=== PATIENT | female | born 1985 | race American Indian/Alaskan Native ===

== ENCOUNTER 2018-12-08 23:27 | Emergency (ER) | payer MEDICAID, OTHER ==
[2018-12-08] MEDS ORDERED: Sodium Chloride 0.9% 10 ML Syringe FLUSH PRN (23:50)
[2018-12-09] MEDS ORDERED: Iopamidol 612 MG/ML 75 ML Bottle IVPUSH ONE (00:06)
[2018-12-09 01:04] LABS: ANION GAP 13.2; CHLORIDE,CL 103 mmol/L (101-111); SODIUM,NA 138 mmol/L (135-145)
--- NOTE | 2018-12-09 01:40 | EDM.PDOC ---
ED HPI GENERAL MEDICAL PROBLEM - General Chief Complaint: Abdominal Pain Stated Complaint: EYES ARE YELLOW, SHARP PAIN RIGHT SIDE [id number] Time Seen by Provider: 12/09/18 00:15 Source of Information: Reports: Patient, RN, RN Notes Reviewed History Limitations: Reports: No Limitations - History of Present Illness INITIAL COMMENTS - FREE TEXT/NARRATIVE: Pt to Er with c/o RUQ pain and "yellow eyes". Patient states she has not been feeling well for about a week to 10 days. She states her sister told her about 5 days ago that her eyes were yellow. Patient states she drinks alcohol minimally, denies any other illnesses. She states she has had chills at times, nausea, vomiting. Patient denies hepatitis. Onset: Gradual Duration: Constant, Getting Worse Location: Reports: Abdomen Quality: Reports: Stabbing Severity: Moderate Improves with: Reports: None Worsens with: Reports: None Associated Symptoms: Reports: Other (jaundice) Right Upper Abdominal Pain Score (Numeric/FACES): 2 - Related Data Allergies Allergy/AdvReac Type Severity Reaction Status Date / Time No Known Allergies Allergy Verified 04/03/15 06:30 Home Meds: Home Meds . 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: Psychiatric History: Reports: Addiction Social & Family History - Family History Family Medical History: Noncontributory - Tobacco Use Smoking Status *Q: Current Every Day Smoker Years of Tobacco use: 14 Packs/Tins Daily: 1 Second Hand Smoke Exposure: Yes - Caffeine Use Caffeine Use: Reports: Coffee, Energy Drinks, Soda - Recreational Drug Use Recreational Drug Use: Yes Drug Use in Last 12 Months: Yes Recreational Drug Type: Reports: Amphetamines (Speed), Marijuana/Hashish, Methamphetamine, Oxycodone Recreational Drug Use Frequency: Binges Recreational Drug Last Use: pills, marijuana, meth ED ROS GENERAL - Review of Systems Review Of Systems: ROS reveals no pertinent complaints other than HPI. ED EXAM, GI/ABD - Physical Exam Exam: See Below Exam Limited By: No Limitations General Appearance: Alert, WD/WN, No Apparent Distress, Anxious Eyes: Bilateral: Normal Appearance (scleral icterus), EOMI Ears: Normal External Exam, Hearing Grossly Normal Nose: Normal Inspection Throat/Mouth: Normal Inspection, Normal Voice, No Airway Compromise Head: Atraumatic, Normocephalic Neck: Normal Inspection, Supple, Non-Tender, Full Range of Motion Respiratory/Chest: No Respiratory Distress, Lungs Clear, Normal Breath Sounds, No Accessory Muscle Use, Chest Non-Tender Cardiovascular: Normal Peripheral Pulses, Regular Rate, Rhythm, No Edema, No Gallop, No JVD, No Murmur, No Rub GI/Abdominal Exam: Normal Bowel Sounds, Soft, Tender (RUQ) (Female) Exam: Deferred Rectal (Female) Exam: Deferred Back Exam: Normal Inspection, Full Range of Motion Extremities: Normal Inspection, Normal Range of Motion, Non-Tender, No Pedal Edema, Normal Capillary Refill Neurological: Alert, Oriented, CN II-XII Intact, Normal Cognition, Normal Gait, Normal Reflexes, No Motor/Sensory Deficits Psychiatric: Normal Affect, Normal Mood, Anxious Skin Exam: Warm, Dry, Intact, Jaundice Lymphatic: No Adenopathy Course - Vital Signs Last Recorded V/S: Last Vital Signs Temp 97.4 F 12/09/18 02:59 Pulse 74 12/09/18 00:05 Resp 18 12/09/18 00:05 BP 129/81 12/09/18 02:59 Pulse Ox 99 12/09/18 00:05 - Orders/Labs/Meds Orders: Active Orders 24 hr Category Date Time Status Peripheral IV Care [RC] . DIRECTED Care 12/08/18 23:50 Active CULTURE URINE [RM] Stat Lab 12/09/18 00:12 Received Sodium Chloride 0.9% [Normal Saline] 1,000 ml Med 12/09/18 03:02 Active IV .BOLUS Sodium Chloride 0.9% [Saline Flush] Med 12/08/18 23:50 Active 10 ml FLUSH ASDIRECTED PRN Peripheral IV Insertion Adult [OM.PC] Stat Oth 12/08/18 23:50 Ordered Medication Orders Sodium Chloride (Normal Saline) 1,000 mls @ 150 mls/hr IV .BOLUS ONE Stop: 12/09/18 09:41 Last Admin: 12/09/18 03:23 Dose: 150 mls/hr Sodium Chloride (Saline Flush) 10 ml FLUSH ASDIRECTED PRN PRN Reason: Keep Vein Open Last Admin: 12/09/18 00:13 Dose: 10 ml Labs: Laboratory Tests 0412/08/18 12/08/18 Range/Units 00:02 00:02 00:02 WBC 6.2 (5.0-10.0) 10^3/uL RBC 4.59 (4.2-5.4) 10^6/uL Hgb 13.7 D (12.0-16.0) g/dL Hct 39.7 (37.0-47.0) % MCV 86.5 (80-100) fL MCH 29.8 (27.0-34.0) pg MCHC 34.5 (33.0-35.0) g/dL Plt Count 351 D (150-450) 10^3/uL Neut % (Auto) 48.4 (42.2-75.2) % Lymph % (Auto) 37.6 (20.5-50.1) % [place] % (Auto) 10.9 H (2-8) % Eos % (Auto) 2.8 (1.0-3.0) % Baso % (Auto) 0.3 (0.0-1.0) % PT 10.6 (9.0-12.0) SEC INR 1.1 (0.9-1.2) Sodium 138 (135-145) mmol/L Potassium 3.2 L (3.6-5.0) mmol/L Chloride 103 (101-111) mmol/L Carbon Dioxide 25.0 (21.0-31.0) mmol/L Anion Gap 13.2 BUN 8 (7-18) mg/dL Creatinine 0.4 L (0.6-1.3) mg/dL Est Cr Clr Drug Dosing 201.87 mL/min Estimated GFR (MDRD) > 60 BUN/Creatinine Ratio 20.00 Glucose 99 (74-105) mg/dL Calcium 8.7 (8.4-10.2) mg/dl Total Bilirubin 10.0 H (0.2-1.0) mg/dL AST 931 H (10-42) IU/L ALT 1461 H (10-60) IU/L Alkaline Phosphatase 197 H (42-121) IU/L Total Protein 7.0 (6.7-8.2) g/dl Albumin 3.6 (3.2-5.5) g/dl Globulin 3.4 Albumin/Globulin Ratio 1.06 Amylase 57 (28-100) U/L Lipase 48 (22-51) U/L Urine Color (YELLOW) Urine Appearance (CLEAR) Urine pH (5.0-9.0) Ur Specific [place] (1.005-1.030) Urine Protein (NEGATIVE) Urine Glucose (UA) (NEGATIVE) Urine Ketones (NEGATIVE) Urine Occult Blood (NEGATIVE) Urine Nitrite (NEGATIVE) Urine Bilirubin (NEGATIVE) Urine Urobilinogen (0.2-1.0) mg/dL Ur Leukocyte Esterase (NEGATIVE) Urine RBC /HPF Urine WBC (0-5/HPF) /HPF Ur Epithelial Cells /HPF Urine Bacteria (0-FEW/HPF) /HPF Urine Mucus /LPF Urinalysis Comment Urine HCG, Qual Salicylates mg/dL Urine Opiates Screen (NEGATIVE) Ur Oxycodone Screen (NEGATIVE) Urine Methadone Screen (NEGATIVE) Acetaminophen ug/mL Ur Barbiturates Screen (NEGATIVE) U Tricyclic Antidepress (NEGATIVE) Ur Phencyclidine Scrn (NEGATIVE) Ur Amphetamine Screen (NEGATIVE) U Methamphetamines Scrn (NEGATIVE) Urine MDMA Screen (NEGATIVE) U Benzodiazepines Scrn (NEGATIVE) Urine Cocaine Screen (NEGATIVE) U Marijuana (THC) Screen (NEGATIVE) Ethyl Alcohol < 5 mg/dL 12/09/18 12/09/18 12/09/18 Range/Units 00:02 00:12 00:12 WBC (5.0-10.0) 10^3/uL RBC (4.2-5.4) 10^6/uL Hgb (12.0-16.0) g/dL Hct (37.0-47.0) % MCV (80-100) fL MCH (27.0-34.0) pg MCHC (33.0-35.0) g/dL Plt Count (150-450) 10^3/uL Neut % (Auto) (42.2-75.2) % Lymph % (Auto) (20.5-50.1) % [place] % (Auto) (2-8) % Eos % (Auto) (1.0-3.0) % Baso % (Auto) (0.0-1.0) % PT (9.0-12.0) SEC INR (0.9-1.2) Sodium (135-145) mmol/L Potassium (3.6-5.0) mmol/L Chloride (101-111) mmol/L Carbon Dioxide (21.0-31.0) mmol/L Anion Gap BUN (7-18) mg/dL Creatinine (0.6-1.3) mg/dL Est Cr Clr Drug Dosing mL/min Estimated GFR (MDRD) BUN/Creatinine Ratio Glucose (74-105) mg/dL Calcium (8.4-10.2) mg/dl Total Bilirubin (0.2-1.0) mg/dL AST (10-42) IU/L ALT (10-60) IU/L Alkaline Phosphatase (42-121) IU/L Total Protein (6.7-8.2) g/dl Albumin (3.2-5.5) g/dl Globulin Albumin/Globulin Ratio Amylase (28-100) U/L Lipase (22-51) U/L Urine Color Dark yellow (YELLOW) Urine Appearance Slightly cloudy (CLEAR) Urine pH 6.5 (5.0-9.0) Ur Specific [place] 1.025 (1.005-1.030) Urine Protein Trace H (NEGATIVE) Urine Glucose (UA) Negative (NEGATIVE) Urine Ketones 15 H (NEGATIVE) Urine Occult Blood Negative (NEGATIVE) Urine Nitrite Negative (NEGATIVE) Urine Bilirubin Large H (NEGATIVE) Urine Urobilinogen 2.0 H (0.2-1.0) mg/dL Ur Leukocyte Esterase Small H (NEGATIVE) Urine RBC 0-5 /HPF Urine WBC 50-75 H (0-5/HPF) /HPF Ur Epithelial Cells Many H /HPF Urine Bacteria Many H (0-FEW/HPF) /HPF Urine Mucus Moderate H /LPF Urinalysis Comment Urine HCG, Qual Negative Salicylates < 4.0 mg/dL Urine Opiates Screen (NEGATIVE) Ur Oxycodone Screen (NEGATIVE) Urine Methadone Screen (NEGATIVE) Acetaminophen < 10.0 ug/mL Ur Barbiturates Screen (NEGATIVE) U Tricyclic Antidepress (NEGATIVE) Ur Phencyclidine Scrn (NEGATIVE) Ur Amphetamine Screen (NEGATIVE) U Methamphetamines Scrn (NEGATIVE) Urine MDMA Screen (NEGATIVE) U Benzodiazepines Scrn (NEGATIVE) Urine Cocaine Screen (NEGATIVE) U Marijuana (THC) Screen (NEGATIVE) Ethyl Alcohol mg/dL 12/09/18 Range/Units 00:12 WBC (5.0-10.0) 10^3/uL RBC (4.2-5.4) 10^6/uL Hgb (12.0-16.0) g/dL Hct (37.0-47.0) % MCV (80-100) fL MCH (27.0-34.0) pg MCHC (33.0-35.0) g/dL Plt Count (150-450) 10^3/uL Neut % (Auto) (42.2-75.2) % Lymph % (Auto) (20.5-50.1) % [place] % (Auto) (2-8) % Eos % (Auto) (1.0-3.0) % Baso % (Auto) (0.0-1.0) % PT (9.0-12.0) SEC INR (0.9-1.2) Sodium (135-145) mmol/L Potassium (3.6-5.0) mmol/L Chloride (101-111) mmol/L Carbon Dioxide (21.0-31.0) mmol/L Anion Gap BUN (7-18) mg/dL Creatinine (0.6-1.3) mg/dL Est Cr Clr Drug Dosing mL/min Estimated GFR (MDRD) BUN/Creatinine Ratio Glucose (74-105) mg/dL Calcium (8.4-10.2) mg/dl Total Bilirubin (0.2-1.0) mg/dL AST (10-42) IU/L ALT (10-60) IU/L Alkaline Phosphatase (42-121) IU/L Total Protein (6.7-8.2) g/dl Albumin (3.2-5.5) g/dl Globulin Albumin/Globulin Ratio Amylase (28-100) U/L Lipase (22-51) U/L Urine Color (YELLOW) Urine Appearance (CLEAR) Urine pH (5.0-9.0) Ur Specific [place] (1.005-1.030) Urine Protein (NEGATIVE) Urine Glucose (UA) (NEGATIVE) Urine Ketones (NEGATIVE) Urine Occult Blood (NEGATIVE) Urine Nitrite (NEGATIVE) Urine Bilirubin (NEGATIVE) Urine Urobilinogen (0.2-1.0) mg/dL Ur Leukocyte Esterase (NEGATIVE) Urine RBC /HPF Urine WBC (0-5/HPF) /HPF Ur Epithelial Cells /HPF Urine Bacteria (0-FEW/HPF) /HPF Urine Mucus /LPF Urinalysis Comment Urine HCG, Qual Salicylates mg/dL Urine Opiates Screen Negative (NEGATIVE) Ur Oxycodone Screen Negative (NEGATIVE) Urine Methadone Screen Negative (NEGATIVE) Acetaminophen ug/mL Ur Barbiturates Screen Negative (NEGATIVE) U Tricyclic Antidepress Negative (NEGATIVE) Ur Phencyclidine Scrn Negative (NEGATIVE) Ur Amphetamine Screen Positive H (NEGATIVE) U Methamphetamines Scrn Positive H (NEGATIVE) Urine MDMA Screen Negative (NEGATIVE) U Benzodiazepines Scrn Negative (NEGATIVE) Urine Cocaine Screen Negative (NEGATIVE) U Marijuana (THC) Screen Positive H (NEGATIVE) Ethyl Alcohol mg/dL Meds: Medications Generic Name Dose Route Start Last Admin Trade Name Freq PRN Reason Stop Dose Admin Sodium Chloride 1,000 mls @ 150 mls/hr 12/09/18 03:02 12/09/18 03:23 Normal Saline IV 12/09/18 09:41 150 mls/hr .BOLUS ONE Administration Sodium Chloride 10 ml 12/08/18 23:50 12/09/18 00:13 Saline Flush FLUSH 10 ml ASDIRECTED PRN Administration Keep Vein Open Discontinued Medications Generic Name Dose Route Start Last Admin Trade Name Freq PRN Reason Stop Dose Admin Iopamidol 75 ml 12/09/18 00:06 12/09/18 01:59 Isovue-300 (61%) IVPUSH 12/09/18 00:07 75 ml ONETIME ONE Administration - Radiology Interpretation Free Text/Narrative:: Abdominal CT: FINDINGS: Lower thorax: No acute findings. ABDOMEN: Liver: Normal. No mass. Gallbladder and bile ducts: Small contracted gallbladder Pancreas: Normal. No ductal dilation. Spleen: Normal. No splenomegaly. Adrenals: Normal. No mass. Kidneys and ureters: 3 mm nonobstructing stone lower pole left kidney Stomach and bowel: Normal. No obstruction. No mucosal thickening. Appendix: Normal appendix right lower quadrant PELVIS: Bladder: Unremarkable as visualized. Reproductive: Fibroid uterus 3.2 cm right ovarian cyst ABDOMEN and PELVIS: Intraperitoneal space: Normal. No free air. No significant fluid collection. Bones/joints: No acute fracture. No dislocation. Soft tissues: Unremarkable. Vasculature: Normal. No abdominal aortic aneurysm. Lymph nodes: Normal. No enlarged lymph nodes. IMPRESSION: 1. Small contracted gallbladder. No definite gallstones are seen 2. Fibroid uterus 3. No evidence for biliary ductal dilatation. 4. Enlarged right ovary measuring 5 cm secondary to a right ovarian cyst measuring 3.2 cm with a small amount of free fluid in the cul-de-sac Thank you for allowing us to participate in the care of your patient. Dictated and Authenticated by: James Anne MD 12/09/2018 2:43 AM Central Time ([place] & [place]) See rad report Departure - Departure Time of Disposition: 03:04 Disposition: DC/Tfer to Acute Hospital 02 Condition: Fair Clinical Impression: Bacterial vaginosis Liver failure, acute Qualifiers: Hepatic coma status: without hepatic coma Qualified Code(s): K72.00 - Acute and subacute hepatic failure without coma - Discharge Information *PRESCRIPTION DRUG MONITORING PROGRAM REVIEWED*: No *COPY OF PRESCRIPTION DRUG MONITORING REPORT IN PATIENT THIERRY: No Forms: ED Department Discharge, Interfacility Transfer EMTALA - My Orders Last 24 Hours: My Active Orders 12/08/18 23:50 Peripheral IV Care [RC] . DIRECTED Sodium Chloride 0.9% [Saline Flush] 10 ml FLUSH ASDIRECTED PRN Peripheral IV Insertion Adult [OM.PC] Stat 12/09/18 00:12 CULTURE URINE [RM] Stat 12/09/18 03:02 Sodium Chloride 0.9% [Normal Saline] 1,000 ml IV .BOLUS - Assessment/Plan Last 24 Hours: My Active Orders 12/08/18 23:50 Peripheral IV Care [RC] . DIRECTED Sodium Chloride 0.9% [Saline Flush] 10 ml FLUSH ASDIRECTED PRN Peripheral IV Insertion Adult [OM.PC] Stat 12/09/18 00:12 CULTURE URINE [RM] Stat 12/09/18 03:02 Sodium Chloride 0.9% [Normal Saline] 1,000 ml IV .BOLUS
[2018-12-09 02:59] VITALS: BP 129/81
[2018-12-09] MEDS ORDERED: Sodium Chloride 0.9% 1,000 ML IV ONE (03:02)
[2018-12-09 03:23] LABS: ACETAMINOPHEN < 10.0 ug/mL
== END 2018-12-09 03:47 ==
LOC: DL.ED 23:27
DX: K72.00 Acute and subacute hepatic failure without coma (principal); N76.0 Acute vaginitis; F17.210 Nicotine dependence, cigarettes, uncomplicated
CPT/HCPCS: 36415; 74177; 80053; 80305; 81001; 81025; 82150; 83690; 85025; 85610; 87086; 96365; 99285; G0480; J7030; Q9967; 87088; 87186

== ENCOUNTER 2020-09-29 13:54 | Emergency (ER) | payer OTHER ==
--- NOTE | 2020-09-29 14:14 | EDM.PDOC ---
ED HPI GENERAL MEDICAL PROBLEM - General Stated Complaint: APPENDIX, SORE HURTING ABDOMIN Time Seen by Provider: 09/29/20 14:15 Source of Information: Reports: Patient, RN, RN Notes Reviewed History Limitations: Reports: No Limitations - History of Present Illness INITIAL COMMENTS - FREE TEXT/NARRATIVE: Patient presents to the ED via personal vehicle with complaints of abdominal pain. The patient reports the pain began about two days prior, 09/27/20, and has progressively worsened in that time. She states the pain is in her RUQ and RLQ and characterizes it as sharp in nature; it does not radiate but she reports the pain as 10/10. She denies experiencing pain similar to this before. She denies fever, shaking chills, vision changes, dyspepsia, vomiting, dysuria, hematuria, melena, or hematochezia. She does attest to nausea with loose stools that began yesterday. She is a G6, P6 with a LMP of 09/22/20, she states she is still infrequently spotting from her menses. She denies a history of abdominal surgeries. Right Lower Abdomen Pain Score (Numeric/FACES): 10 - Related Data Allergies Allergy/AdvReac Type Severity Reaction Status Date / Time No Known Allergies Allergy Verified 04/03/15 06:30 Home Meds: Home Meds . 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 ED EXAM, GI/ABD - Physical Exam Exam: See Below Exam Limited By: No Limitations General Appearance: Alert, No Apparent Distress Throat/Mouth: Normal Inspection, Normal Voice, No Airway Compromise Head: Atraumatic, Normocephalic Respiratory/Chest: No Respiratory Distress, Lungs Clear, Normal Breath Sounds, No Accessory Muscle Use, Chest Non-Tender Cardiovascular: Normal Peripheral Pulses, Regular Rate, Rhythm, No Edema, No Gallop, No JVD, No Murmur, No Rub GI/Abdominal Exam: Normal Bowel Sounds, Soft, No Distention, No Mass, Pelvis Stable, Rebound (To right lower quadrant), Tender (To palpation of right lower quadrant) (Female) Exam: Normal Bimanual Exam, Vaginal Discharge. No: Adnexal Mass, Adnexal Tenderness, Cervix Motion Tenderness, Vaginal Bleeding, Vaginal Lesions Rectal (Female) Exam: Deferred Back Exam: Normal Inspection, Full Range of Motion. No: CVA Tenderness (L), CVA Tenderness (R) Extremities: Normal Inspection, Normal Range of Motion, Non-Tender, Normal Capillary Refill, No Pedal Edema Neurological: Alert, Oriented, CN II-XII Intact, Normal Cognition, Normal Gait, No Motor/Sensory Deficits Psychiatric: Normal Affect, Normal Mood Skin Exam: Warm, Dry, Intact, Normal Color, No Rash. No: Ecchymosis, Erythema, Jaundice, Mottled, Pallor, Petechiae Course - Vital Signs Last Recorded V/S: Last Vital Signs Temp 99 F 09/29/20 14:56 Pulse 91 09/29/20 14:56 Resp 20 09/29/20 14:56 BP 108/57 L 09/29/20 14:56 Pulse Ox 99 09/29/20 14:56 - Orders/Labs/Meds Labs: Laboratory Tests 09/29/20 09/29/20 09/29/20 Range/Units 14:13 14:13 14:14 WBC 20.4 H (5.0-10.0) 10^3/uL RBC 4.85 (4.2-5.4) 10^6/uL Hgb 14.4 (12.0-16.0) g/dL Hct 42.7 (37.0-47.0) % MCV 88.0 (80-100) fL MCH 29.7 (27.0-34.0) pg MCHC 33.7 (33.0-35.0) g/dL Plt Count 358 (150-450) 10^3/uL Neut % (Auto) 89.9 H (42.2-75.2) % Lymph % (Auto) 5.3 L (20.5-50.1) % Eagle % (Auto) 4.4 (2-8) % Eos % (Auto) 0.3 L (1.0-3.0) % Baso % (Auto) 0.1 (0.0-1.0) % Sodium (136-145) mmol/L Potassium (3.5-5.1) mmol/L Chloride (98-107) mmol/L Carbon Dioxide (21-32) mmol/L Anion Gap (7-13) mEq/L BUN (7-18) mg/dL Creatinine (0.55-1.02) mg/dL Est Cr Clr Drug Dosing mL/min Estimated GFR (MDRD) BUN/Creatinine Ratio (No establ ref range) Glucose (74-99) mg/dL Lactic Acid (0.4-2.0) mmol/L Calcium (8.5-10.1) mg/dL Magnesium (1.8-2.4) mg/dL Total Bilirubin (0.2-1.0) mg/dL AST (15-37) U/L ALT (14-59) U/L Alkaline Phosphatase (46-116) U/L C-Reactive Protein (0.0-0.9) mg/dL Total Protein (6.4-8.2) g/dL Albumin (3.4-5.0) g/dL Globulin Albumin/Globulin Ratio Amylase (25-115) U/L Lipase (73-393) U/L Urine Color (YELLOW) Urine Appearance (CLEAR) Urine pH (5.0-9.0) Ur Specific [place] (1.005-1.030) Urine Protein (NEGATIVE) Urine Glucose (UA) (NEGATIVE) Urine Ketones (NEGATIVE) Urine Occult Blood (NEGATIVE) Urine Nitrite (NEGATIVE) Urine Bilirubin (NEGATIVE) Urine Urobilinogen (0.2-1.0) mg/dL Ur Leukocyte Esterase (NEGATIVE) Urine RBC /HPF Urine WBC (0-5/HPF) /HPF Ur Epithelial Cells (NOT SEEN) /HPF Amorphous Sediment (NOT SEEN) /HPF Urine Bacteria (0-FEW/HPF) /HPF Urine Mucus (NOT SEEN) /LPF Urine Trichomonas (NOT SEEN) /HPF Urine HCG, Qual Negative Urine Opiates Screen Negative (NEGATIVE) Ur Oxycodone Screen Negative (NEGATIVE) Urine Methadone Screen Negative (NEGATIVE) Ur Barbiturates Screen Negative (NEGATIVE) U Tricyclic Antidepress Negative (NEGATIVE) Ur Phencyclidine Scrn Negative (NEGATIVE) Ur Amphetamine Screen Negative (NEGATIVE) U Methamphetamines Scrn Positive H (NEGATIVE) Urine MDMA Screen Negative (NEGATIVE) U Benzodiazepines Scrn Negative (NEGATIVE) Urine Cocaine Screen Negative (NEGATIVE) U Marijuana (THC) Screen Positive H (NEGATIVE) HIV-1 Antibody (NONREACTIVE) HIV-2 Antibody (NONREACTIVE) HIV P24 Antigen (NONREACTIVE) 09/29/20 09/29/20 09/29/20 Range/Units 14:14 14:14 14:14 WBC (5.0-10.0) 10^3/uL RBC (4.2-5.4) 10^6/uL Hgb (12.0-16.0) g/dL Hct (37.0-47.0) % MCV (80-100) fL MCH (27.0-34.0) pg MCHC (33.0-35.0) g/dL Plt Count (150-450) 10^3/uL Neut % (Auto) (42.2-75.2) % Lymph % (Auto) (20.5-50.1) % Eagle % (Auto) (2-8) % Eos % (Auto) (1.0-3.0) % Baso % (Auto) (0.0-1.0) % Sodium 138 (136-145) mmol/L Potassium 3.8 (3.5-5.1) mmol/L Chloride 101 (98-107) mmol/L Carbon Dioxide 28 (21-32) mmol/L Anion Gap 12.8 (7-13) mEq/L BUN 10 (7-18) mg/dL Creatinine 0.73 (0.55-1.02) mg/dL Est Cr Clr Drug Dosing 107.59 mL/min Estimated GFR (MDRD) > 60 BUN/Creatinine Ratio 13.7 (No establ ref range) Glucose 94 (74-99) mg/dL Lactic Acid 1.5 (0.4-2.0) mmol/L Calcium 9.0 (8.5-10.1) mg/dL Magnesium 2.2 (1.8-2.4) mg/dL Total Bilirubin 0.8 (0.2-1.0) mg/dL AST 70 H (15-37) U/L ALT 225 H (14-59) U/L Alkaline Phosphatase 118 H (46-116) U/L C-Reactive Protein 33.0 H (0.0-0.9) mg/dL Total Protein 8.8 H (6.4-8.2) g/dL Albumin 3.4 (3.4-5.0) g/dL Globulin 5.4 Albumin/Globulin Ratio 0.6 Amylase 27 (25-115) U/L Lipase 49 L (73-393) U/L Urine Color (YELLOW) Urine Appearance (CLEAR) Urine pH (5.0-9.0) Ur Specific [place] (1.005-1.030) Urine Protein (NEGATIVE) Urine Glucose (UA) (NEGATIVE) Urine Ketones (NEGATIVE) Urine Occult Blood (NEGATIVE) Urine Nitrite (NEGATIVE) Urine Bilirubin (NEGATIVE) Urine Urobilinogen (0.2-1.0) mg/dL Ur Leukocyte Esterase (NEGATIVE) Urine RBC /HPF Urine WBC (0-5/HPF) /HPF Ur Epithelial Cells (NOT SEEN) /HPF Amorphous Sediment (NOT SEEN) /HPF Urine Bacteria (0-FEW/HPF) /HPF Urine Mucus (NOT SEEN) /LPF Urine Trichomonas (NOT SEEN) /HPF Urine HCG, Qual Urine Opiates Screen (NEGATIVE) Ur Oxycodone Screen (NEGATIVE) Urine Methadone Screen (NEGATIVE) Ur Barbiturates Screen (NEGATIVE) U Tricyclic Antidepress (NEGATIVE) Ur Phencyclidine Scrn (NEGATIVE) Ur Amphetamine Screen (NEGATIVE) U Methamphetamines Scrn (NEGATIVE) Urine MDMA Screen (NEGATIVE) U Benzodiazepines Scrn (NEGATIVE) Urine Cocaine Screen (NEGATIVE) U Marijuana (THC) Screen (NEGATIVE) HIV-1 Antibody Non-reactive (NONREACTIVE) HIV-2 Antibody Non-reactive (NONREACTIVE) HIV P24 Antigen Non-reactive (NONREACTIVE) 09/29/20 Range/Units 14:18 WBC (5.0-10.0) 10^3/uL RBC (4.2-5.4) 10^6/uL Hgb (12.0-16.0) g/dL Hct (37.0-47.0) % MCV (80-100) fL MCH (27.0-34.0) pg MCHC (33.0-35.0) g/dL Plt Count (150-450) 10^3/uL Neut % (Auto) (42.2-75.2) % Lymph % (Auto) (20.5-50.1) % Eagle % (Auto) (2-8) % Eos % (Auto) (1.0-3.0) % Baso % (Auto) (0.0-1.0) % Sodium (136-145) mmol/L Potassium (3.5-5.1) mmol/L Chloride (98-107) mmol/L Carbon Dioxide (21-32) mmol/L Anion Gap (7-13) mEq/L BUN (7-18) mg/dL Creatinine (0.55-1.02) mg/dL Est Cr Clr Drug Dosing mL/min Estimated GFR (MDRD) BUN/Creatinine Ratio (No establ ref range) Glucose (74-99) mg/dL Lactic Acid (0.4-2.0) mmol/L Calcium (8.5-10.1) mg/dL Magnesium (1.8-2.4) mg/dL Total Bilirubin (0.2-1.0) mg/dL AST (15-37) U/L ALT (14-59) U/L Alkaline Phosphatase (46-116) U/L C-Reactive Protein (0.0-0.9) mg/dL Total Protein (6.4-8.2) g/dL Albumin (3.4-5.0) g/dL Globulin Albumin/Globulin Ratio Amylase (25-115) U/L Lipase (73-393) U/L Urine Color Dark yellow (YELLOW) Urine Appearance Slightly cloudy (CLEAR) Urine pH 6.0 (5.0-9.0) Ur Specific [place] 1.025 (1.005-1.030) Urine Protein 30 H (NEGATIVE) Urine Glucose (UA) Negative (NEGATIVE) Urine Ketones Trace H (NEGATIVE) Urine Occult Blood Trace-intact H (NEGATIVE) Urine Nitrite Negative (NEGATIVE) Urine Bilirubin Small H (NEGATIVE) Urine Urobilinogen 2.0 H (0.2-1.0) mg/dL Ur Leukocyte Esterase Small H (NEGATIVE) Urine RBC 5-10 H /HPF Urine WBC 40-50 H (0-5/HPF) /HPF Ur Epithelial Cells Moderate H (NOT SEEN) /HPF Amorphous Sediment Few (NOT SEEN) /HPF Urine Bacteria Moderate H (0-FEW/HPF) /HPF Urine Mucus Many H (NOT SEEN) /LPF Urine Trichomonas Present H (NOT SEEN) /HPF Urine HCG, Qual Urine Opiates Screen (NEGATIVE) Ur Oxycodone Screen (NEGATIVE) Urine Methadone Screen (NEGATIVE) Ur Barbiturates Screen (NEGATIVE) U Tricyclic Antidepress (NEGATIVE) Ur Phencyclidine Scrn (NEGATIVE) Ur Amphetamine Screen (NEGATIVE) U Methamphetamines Scrn (NEGATIVE) Urine MDMA Screen (NEGATIVE) U Benzodiazepines Scrn (NEGATIVE) Urine Cocaine Screen (NEGATIVE) U Marijuana (THC) Screen (NEGATIVE) HIV-1 Antibody (NONREACTIVE) HIV-2 Antibody (NONREACTIVE) HIV P24 Antigen (NONREACTIVE) Meds: Medications Discontinued Medications Generic Name Dose Route Start Last Admin Trade Name Freq PRN Reason Stop Dose Admin Ceftriaxone Sodium 1 gm/ 0 gm 09/29/20 16:30 09/29/20 16:56 Lidocaine HCl 2.1 ml IM 09/29/20 16:31 1 inj ONETIME ONE Administration Hydromorphone HCl 1 mg 09/29/20 15:10 09/29/20 15:18 Dilaudid IVPUSH 09/29/20 15:11 1 mg ONETIME ONE Administration Iopamidol 100 ml 09/29/20 15:47 09/29/20 15:47 Isovue-300 (61%) IVPUSH 09/29/20 15:48 75 ml ONETIME ONE Administration Ondansetron HCl 4 mg 09/29/20 15:10 09/29/20 15:18 Zofran IVPUSH 09/29/20 15:11 4 mg ONETIME ONE Administration - Re-Assessments/Exams Free Text/Narrative Re-Assessment/Exam: 09/30/20 UA positive for trichomonas and suspicious for UTI. Updated patient on these findings. She attests to unprotected sexual intercourse with new partners. She states she has not been recently tested or treated for STIs. She states she would like prophylactic treatment for typical STI pathogens. CBC remarkable for WBC 20.4 with left shift. CRP 33.0, no lactic acid elevation. CMP remarkable for elevated LFTs; AST 70, ALT 225, Alk Phos 118. Amylase and Lipase appropriate. Pelvic exam benign for cervical motion tenderness. Swabs performed. CT suspicious for pyelonephritis on the right kidney with non-obstructive nephrolithiasis on the left. Given patient's pain in localized to the right, left stones likely not cause for acute presentation. Results of blood work and imaging discussed with patient. Will treat with Rocephin, Levofloxacin, and Flagyl. Discussed red flag signs and symptoms which would warrant reevaluation. Patient verbalized understanding and agreement with the plan of care. Departure - Departure Time of Disposition: 16:47 Disposition: Home, Self-Care 01 Condition: Good Clinical Impression: Trichomonas vaginalis (TV) infection, Pyelonephritis, Nephrolithiasis, Elevated LFTs Abdominal pain Qualifiers: Abdominal location: right lower quadrant Qualified Code(s): R10.31 - Right lower quadrant pain - Discharge Information *PRESCRIPTION DRUG MONITORING PROGRAM REVIEWED*: Not Applicable *COPY OF PRESCRIPTION DRUG MONITORING REPORT IN PATIENT THIERRY: Not Applicable Instructions: Trichomoniasis Referrals: PCP,None [Primary Care Provider] - Forms: ED Department Discharge Additional Instructions: Rx Levofloxacin Rx: Flagyl 1.) You will receive results via phone call from you lab work today. 2.) Take all of your antibiotics until they are gone; even if symptoms improve. 3.) Follow up with your primary care provider, or in the emergency room, with and fever, shaking chills, or pain that does not improve following two days of antibiotics. 4.) You may take acetaminophen (Tylenol) 650mg every six hours, as pain persists. You may take ibuprofen (Advil/Motrin) 400mg every six hours, as pain persists. You may stagger these medications so you are taking a dose of medicine every three hours. 5.) Drink plenty of fluids to stay hydrated. 6.) Follow up with your primary care provider in one week to have labs and urine rechecked. Sepsis Event Note (ED) - Evaluation Sepsis Screening Result: No Definite Risk
[2020-09-29 14:51] LABS: ANION GAP 12.8 mEq/L (7-13); CHLORIDE,CL 101 mmol/L (98-107); SODIUM,NA 138 mmol/L (136-145)
[2020-09-29 14:58] VITALS: BP 108/57; PULSE 91
[2020-09-29 15:03] LABS: METHAMPHETAMINES,URINE POSITIVE (NEGATIVE)
[2020-09-29 15:04] LABS: AMPHETAMINES,URINE NEGATIVE (NEGATIVE); BARBITURATES,URINE NEGATIVE (NEGATIVE); BENZODIAZEPINE,URINE NEGATIVE (NEGATIVE); MDMA (ECSTASY), URINE NEGATIVE (NEGATIVE); METHADONE,URINE NEGATIVE (NEGATIVE); OPIATES,URINE NEGATIVE (NEGATIVE); OXYCODONE,URINE NEGATIVE (NEGATIVE); PHENCYCLIDINE,URINE NEGATIVE (NEGATIVE); TCA,URINE NEGATIVE (NEGATIVE)
[2020-09-29] MEDS ORDERED: Ondansetron 4 MG/2 ML SDV IVPUSH ONE (15:10)
[2020-09-29] MEDS ORDERED: HYDROmorphone 1 MG/ML Syringe IVPUSH ONE (15:10)
[2020-09-29] MEDS ORDERED: Iopamidol 612 MG/ML 100 ML Bottle IVPUSH ONE (15:47)
--- NOTE | 2020-09-29 16:07 | CT ---
EXAMINATION: Abdomen Pelvis w wo Cont SEX: Female AGE: 34 years CLINICAL HISTORY: 34-year-old 161 pound female smoker complaining of RIGHT SIDED PAIN (Pain in RUQ and RLQ) who has abnormally elevated serum WBC (greater than 20,000) and hematuria. Scan technique: Volume acquisition of data abdomen and pelvis obtained before, during and after intravenous infusion 75 cc nonionic Isovue contrast 3 cc/s via injector while patient was lying supine on the Siemens multi slice scanner [place], [place]. All data archived in the PACS system for storage, reformatting axial/sagittal/coronal planes and study. Interpretation: 1. Gallbladder, liver, stomach, spleen, pancreas and adrenal glands unremarkable. 2. Normal appendix identified in the right lower quadrant. No sign of calcified appendicolith, appendiceal edema or periappendiceal inflammatory "dirty" peritoneal fat. 3. Asymmetrically larger right kidney with inhomogeneously dense renal cortical mantle suggesting inflammation i.e. pyelonephritis. Clinical? Intensely bright renal pyramids both kidneys suggest dehydration. 4. Several tiny punctate calcifications lower pole contralateral left kidney (nephrolithiasis). Multiple phleboliths in the pelvis. No current signs of obstructive uropathy i.e. no pyelocaliectasis or ureterectasis. 5. Normal midline uterus. Asymmetrically larger left ovary. 6. No abdominal mass lesion, inflammatory "dirty" peritoneal fat, signs of mechanical bowel obstruction, ascites or free intraperitoneal air (large volume of stool in the ascending right colon). 7. Normal caliber aortoiliac vessels. Lumbar spine unremarkable. Lung bases clear. No effusions. CONCLUSION: Dehydration and possible pyelonephritis (right kidney). Nephrolithiasis without obstructive uropathy left kidney. Normal gallbladder and appendix.
[2020-09-29] MEDS ORDERED: cefTRIAXone 1 GM, Lidocaine 1% 2.1 ML IM ONE ×2 (16:30)
[2020-10-03 11:42] LABS: C.TRACHOMATIS BY TMA Negative (Negative); N.GONORRHOEAE BY TMA Positive (Negative)
== END 2020-09-29 17:15 | disposition home or self-care (01) ==
LOC: DL.ED 13:54
DX: A59.01 Trichomonal vulvovaginitis (principal); N12 Tubulo-interstitial nephritis, not specified as acute or chronic; N20.0 Calculus of kidney; R79.89 Other specified abnormal findings of blood chemistry
CPT/HCPCS: 36415; 74178; 80053; 80305; 81001; 81025; 82150; 83605; 83690; 83735; 85025; 86140; 87086; 87340; 87389; 87491; 87591; 96372; 96374; 96375; 99284; J0696; J1170; J2001; J2405; Q9967; 99283

== ENCOUNTER 2024-06-20 16:41 | Emergency (ER) | payer MEDICAID ==
[2024-06-20 18:15] VITALS: BP 146/101; PULSE 105
== END 2024-06-20 18:53 | disposition left against medical advice (07) ==
LOC: DL.ED 16:41
DX: Z53.21 Procedure and treatment not carried out due to patient leaving prior to being seen by health care provider (principal)